=== PATIENT | female | born 1975 | race Caucasian/White ===

== ENCOUNTER 2019-01-06 21:09 | Emergency (ER) | payer MEDICARE, MEDICAID ==
[2019-01-06] MEDS ORDERED: Ondansetron 8 MG Tab.DIS PO ONE (22:01)
[2019-01-06] MEDS ORDERED: Albuterol/Ipratropium 3.0-0.5 MG/3 ML Neb Soln NEB ONE (22:01)
--- NOTE | 2019-01-06 22:06 | EDM.PDOC ---
ED HPI GENERAL MEDICAL PROBLEM - General Chief Complaint: Abdominal Pain Stated Complaint: right side pain Time Seen by Provider: 01/06/19 21:09 Source of Information: Reports: Patient, Family History Limitations: Reports: No Limitations - History of Present Illness INITIAL COMMENTS - FREE TEXT/NARRATIVE: 43 y.o w f came to the ed with her sister after she felt pain at her her RUQ of her abd, after eating fatty food. No trauma. Mild nausea bit no vomiting. Pt denied h/o GBD. No CP, no SOB no CP no other acute med issues. BP 112/42 Pulse 93 RR 17 Pulse ox 98% on RA Temp 36.6 Onset Date: 12/28/18 Onset Time: 06:00 Duration: Day(s):, Getting Worse, Intermittent Location: Reports: Abdomen Quality: Reports: Dull, Same as Previous Episode Severity: Moderate Improves with: Reports: Other (not eating) Worsens with: Reports: Eating Context: Reports: Other Associated Symptoms: Reports: No Other Symptoms right upper abd Pain Score (Numeric/FACES): 10 ED ROS GENERAL - Review of Systems Review Of Systems: See Below Constitutional: Reports: No Symptoms HEENT: Reports: No Symptoms Respiratory: Reports: No Symptoms Cardiovascular: Reports: No Symptoms Endocrine: Reports: No Symptoms GI/Abdominal: Reports: Abdominal Pain (RUQ) : Reports: No Symptoms Musculoskeletal: Reports: No Symptoms Skin: Reports: No Symptoms Neurological: Reports: No Symptoms Psychiatric: Reports: No Symptoms Hematologic/Lymphatic: Reports: No Symptoms Immunologic: Reports: No Symptoms ED EXAM, GI/ABD - Physical Exam Exam: See Below Exam Limited By: No Limitations General Appearance: Alert, WD/WN, Mild Distress, Obese (morbid obese) Eyes: Bilateral: Normal Appearance Ears: Normal External Exam Nose: Normal Inspection Throat/Mouth: Normal Inspection Head: Atraumatic, Normocephalic Neck: Normal Inspection, Supple, Non-Tender Respiratory/Chest: No Respiratory Distress, Lungs Clear, Normal Breath Sounds, No Accessory Muscle Use, Chest Non-Tender Cardiovascular: Normal Peripheral Pulses, Regular Rate, Rhythm, No Edema, No Gallop GI/Abdominal Exam: No Abnormal Bruit, No Mass, Pelvis Stable, Tender (RUQ of abdomen) (Female) Exam: Deferred Rectal (Female) Exam: Deferred Back Exam: Normal Inspection, Full Range of Motion Extremities: Normal Inspection, Normal Range of Motion, Non-Tender, No Pedal Edema Neurological: Alert, Oriented, CN II-XII Intact, Normal Cognition, Normal Gait Psychiatric: Normal Affect, Normal Mood Skin Exam: Warm, Dry, Intact, Normal Color Lymphatic: No Adenopathy Course - Vital Signs Text/Narrative:: 43 y.o w f came to the ed with her sister after she felt pain at her her RUQ of her abd, after eating fatty food. No trauma. Mild nausea bit no vomiting. Pt denied h/o GBD. No CP, no SOB no CP no other acute med issues. BP 112/42 Pulse 93 RR 17 Pulse ox 98% on RA Temp 36.6 PE: Morbid obes w f with RUQ abd. pain Labs: CBFC, BMP neg except: Potassium is 5.4 imaging: U/S Scheduled for 10 am, Impression: RUQ abd. pain Tx: Non given Plan: D/C with instructions Last Recorded V/S: Last Vital Signs Temp 36.5 C 01/06/19 23:15 Pulse 82 01/06/19 23:15 Resp 16 01/06/19 23:15 BP 138/82 01/06/19 23:15 Pulse Ox 98 01/06/19 23:15 - Orders/Labs/Meds Orders: Active Orders 24 hr Category Date Time Status RT Aerosol Therapy [RC] ASDIRECTED Care 01/06/19 22:01 Active Abdomen Ltd [US] Stat Exams 01/06/19 22:00 Ordered Labs: Laboratory Tests 01/06/19 01/06/19 Range/Units 22:15 22:15 WBC 11.5 (4.5-12.0) X10-3/uL RBC 4.45 (3.23-5.20) x10(6)uL Hgb 13.1 (11.5-15.5) g/dL Hct 39.3 (30.0-51.3) % MCV 88.2 (80-96) fL MCH 29.4 (27.7-33.6) pg MCHC 33.3 (32.2-35.4) g/dL RDW 13.9 (11.5-15.5) % Plt Count 221 (125-369) X10(3)uL MPV 8.0 (7.4-10.4) fL Add Manual Diff Yes Neutrophils % (Manual) 53 (46-82) % Lymphocytes % (Manual) 32 (13-37) % Monocytes % (Manual) 11 (4-12) % Eosinophils % (Manual) 4 (0-5) % Sodium 139 (135-145) mmol/L Potassium 5.4 H (3.5-5.3) mmol/L Chloride 104 (100-110) mmol/L Carbon Dioxide 29 (21-32) mmol/L BUN 17 (7-18) mg/dL Creatinine 0.8 (0.55-1.02) mg/dL Est Cr Clr Drug Dosing 65.13 mL/min Estimated GFR (MDRD) > 60 (>60) BUN/Creatinine Ratio 21.3 H (9-20) Glucose 124 H (80-116) mg/dL Calcium 8.8 (8.6-10.2) mg/dL Total Bilirubin 0.3 (0.1-1.3) mg/dL Direct Bilirubin < 0.05 L (0.10-0.20) mg/dL AST 27 H (5-25) IU/L ALT 31 (12-36) U/L Alkaline Phosphatase 67 (56-112) IU/L Total Protein 7.1 (6.0-8.0) g/dL Albumin 3.1 L (3.5-5.2) g/dL Amylase 27 (25-115) U/L Meds: Medications Discontinued Medications Generic Name Dose Route Start Last Admin Trade Name Freq PRN Reason Stop Dose Admin Albuterol/Ipratropium 3 ml 01/06/19 22:01 01/06/19 22:30 Duoneb 3.0-0.5 Mg/3 Ml NEB 01/06/19 22:02 3 ml ONETIME ONE Administration Ondansetron HCl 8 mg 01/06/19 22:01 01/06/19 22:30 Zofran Odt PO 01/06/19 22:02 8 mg ONETIME ONE Administration Departure - Departure Time of Disposition: 23:08 Disposition: Home, Self-Care 01 Condition: Good Clinical Impression: RUQ abdominal pain - Discharge Information Instructions: Abdominal Pain, Adult, [id number] Referrals: PCP,None [Primary Care Provider] - Forms: ED Department Discharge Additional Instructions: Please f/u tomorrow with US abdomen at 10 am this Tuesday. Please do not eat anything 8 hours prior to the the test. - My Orders Last 24 Hours: My Active Orders 01/06/19 22:00 Abdomen Ltd [US] Stat 01/06/19 22:01 RT Aerosol Therapy [RC] ASDIRECTED - Assessment/Plan Last 24 Hours: My Active Orders 01/06/19 22:00 Abdomen Ltd [US] Stat 01/06/19 22:01 RT Aerosol Therapy [RC] ASDIRECTED
--- NOTE | 2019-01-08 11:19 | US ---
INDICATION: Right upper quadrant abdominal pain. RIGHT UPPER QUADRANT/GALLBLADDER ULTRASOUND: Multiple ultrasonic images were obtained 01/07/19 - no comparisons. Multiple calculi are noted in the gallbladder, which change in position while the patient changes in position - are dependent. The gallbladder wall was not thickened. The gallbladder was not enlarged, measuring 7 x 3.8 x 4.7 cm. There was a negative ultrasonic [place] sign and no pericholecystic fluid. The common bile duct was normal in caliber at 4.2 mm. The IVC was phasic. The liver measured slightly prominent at 15.3 cm and is slightly echogenic, raising question of a mild degree of fatty liver. The pancreas was not adequately visualized. The right kidney appeared grossly normal, measuring 10 x 4.7 x 4.6 cm. No mass lesions or free fluid collections were identified. IMPRESSION: 1. Cholelithiasis. 2. Question of mild degree of fatty liver with mild enlargement of the liver. MTDD
== END 2019-01-06 23:19 | disposition home or self-care (01) ==
LOC: FB.ED 21:09
DX: R10.11 Right upper quadrant pain (principal)
CPT/HCPCS: 36415; 76705; 80048; 80076; 82150; 85025; 94640; 99284; A9270; 99283; J7620-GY